=== PATIENT | female | born 1990 | race Caucasian/White ===

== ENCOUNTER 2018-11-10 19:11 | Emergency (ER) | payer OTHER ==
[~2018-11-10] VITALS: Ht 154.9 cm; Wt 51.9 kg
[~2018-11-10 19:11] MED LIST: CEPH-443 PO; IBUP-1542 PO; SULF1TAB31 PO
[2018-11-10 19:21] VITALS: Ht 154.9 cm; Wt 51.9 kg
--- NOTE | 2018-11-10 20:00 | ERD ---
ER Documentation Chief Complaint Chief Complaint L hip abscess X 1 wk after injecting heroin, requesting antibiotics only HPI Patient is a 27-year-old female, history of heroin abuse, presents the ER for concerns of abscess to her left upper thigh x1 week. Patient states she has marked the lesion and is improving with warm compresses however it remains present. Patient denies any fevers or chills. Patient is able to ambulate without any difficulty. Patient does not wish to have an incision and drainage today and states she only wants antibiotics. ROS All systems reviewed and are negative except as per history of present illness. Medications Home Meds Active Scripts Sulfamethoxazole/Trimethoprim* (Bactrim Ds* Tablet) 1 Each Tablet, 1 TAB PO BID, #20 TAB Prov:FATOUMATA PERALES PA-C 11/10/18 Cephalexin* (Keflex*) 500 Mg Capsule, 500 MG PO TID for 10 Days, CAP Prov:FATOUMATA PERALES-C 11/10/18 Ibuprofen* (Motrin*) 600 Mg Tab, 600 MG PO Q6, #30 TAB Prov:FATOUMATA PERALES-Nimisha 11/10/18 Allergies Allergies: Coded Allergies: No Known Allergy (Unverified , 11/10/18) FmHx Family History: No diabetes Physical Exam Vitals Vital Signs Date Temp Pulse Resp B/P (MAP) Pulse Ox O2 O2 Flow FiO2 Time Delivery Rate 11/10/18 97.5 105 18 126/76 96 19:21 (93) Physical Exam GENERAL: Well-developed, well-nourished female appears in no acute distress. HEAD: Normocephalic, atraumatic. EYES: Pupils are equally reactive bilaterally. EOMs grossly intact. No conjunctival erythema. ENT: Moist mucous membranes. No uvula deviation. No kissing tonsils. NECK: Supple. No meningismus. Normal range of motion of the neck. LUNG: Clear to auscultation bilaterally. No rhonchi, wheezing, rales or coarse breath sounds. HEART: Tachycardic no murmurs, rubs or gallops. L THIGH: 4 cm erythematous circular abscess noted on the patient's left lateral upper thigh. No streaking. Area is fluctuant. EXTREMITIES: Equal pulses bilaterally. No peripheral clubbing, cyanosis or edema. No unilateral leg swelling. NEUROLOGIC: Alert and oriented. Moving all four extremities without any difficulty. Normal speech. Steady gait. SKIN: Normal color. Warm and dry. No rashes or lesions. Procedures/MDM MEDICAL DECISION MAKING: Patient is a 27-year-old female who presents the ER for concerns of a abscess to her left upper thigh after injecting heroin to the affected area.. Vital signs were reviewed. Patient is afebrile. Patient was not hypoxic. Patient was hemodynamically stable. Patient states she has been watching the affected area, redness is improving however she feels as if she needs antibiotics. Patient does not wish to have an incision and drainage performed today. Patient states she would like to try antibiotics first. Patient will be discharged home with prescription for Bactrim and Keflex. Wound recheck was advised in 2 days. Low suspicion for septic joint or deep space infection at this time. Low suspicion for sepsis. Patient was nontoxic, [id number] prior to discharge. Heroin cessation discussed. PRESCRIPTION: Ibuprofen, Keflex, Bactrim DISCHARGE: At this time, patient is stable for discharge and outpatient management. I have instructed the patient to follow-up with his/her primary care physician in 1-2 days. I have discussed with the patient the possibility of needing to see a specialist for further workup and imaging studies if symptoms persist. I have i nstructed the patient to promptly return to the ER for any new or worsening symptoms including increased pain, fever, nausea, vomiting, weakness or LOC. The patient and/or family expressed understanding of and agreement with this plan. All questions were answered. Home care instructions were provided. Disclaimer: Inadvertent spelling and grammatical errors are likely due to EHR/d [employer] software use and do not reflect on the overall quality of patient care. Also, please note that the electronic time recorded on this note does not necessarily reflect the actual time of the patient encounter. Departure Diagnosis: Primary Impression: Abscess Additional Impression: Heroin use Patient Instructions: Abscess, Antiobiotic Treatment Only Referrals: COMMUNITY CLINICS YOU HAVE RECEIVED A MEDICAL SCREENING EXAM AND THE RESULTS INDICATE THAT YOU DO NOT HAVE A CONDITION THAT REQUIRES URGENT TREATMENT IN THE EMERGENCY DEPARTMENT. FURTHER EVALUATION AND TREATMENT OF YOUR CONDITION CAN WAIT UNTIL YOU ARE SEEN IN YOUR DOCTORS OFFICE WITHIN THE NEXT 1-2 DAYS. IT IS YOUR RESPONSIBILITY TO MAKE AN APPOINTMENT FOR FOLOW-UP CARE. IF YOU HAVE A PRIMARY DOCTOR --you should call your primary doctor and schedule an appointment IF YOU DO NOT HAVE A PRIMARY DOCTOR YOU CAN CALL OUR PHYSICIAN REFERRAL HOTLINE AT IF YOU CAN NOT AFFORD TO SEE A PHYSICIAN YOU CAN CHOSE FROM THE FOLLOWING [facility] [address] [facility] [address] [facility] [address] [facility] [address] [facility] [address] [facility]. [facility] [address] [facility]. [facility] YOU HAVE RECEIVED A MEDICAL SCREENING EXAM AND THE RESULTS INDICATE THAT YOU DO NOT HAVE A CONDITION THAT REQUIRES URGENT TREATMENT IN THE EMERGENCY DEPARTMENT. FURTHER EVALUATION AND TREATMENT OF YOUR CONDITION CAN WAIT UNTIL YOU ARE SEEN IN YOUR DOCTORS OFFICE WITHIN THE NEXT 1-2 DAYS. IT IS YOUR RESPONSIBILITY TO MAKE AN APPOINTMENT FOR FOLOW-UP CARE. IF YOU HAVE A PRIMARY DOCTOR --you should call your primary doctor and schedule and appointment IF YOU DO NOT HAVE A PRIMARY DOCTOR YOU CAN CALL OUR PHYSICIAN REFERRAL HOTLINE AT . IF YOU CAN NOT AFFORD TO SEE A PHYSICIAN YOU CAN CHOSE FROM THE FOLLOWING [facility]: [facility] [address] [place] [address] [facility] [address] [place] [place] [id number] [place] [address] [address] [place] [address] [facility] Additional Instructions: You refused incision and drainage today. Return to the ER in 2 days for recheck or sooner for any new or worsening symptoms. Return immediately if you desire incision and drainage. Call your primary care doctor TOMORROW for an appointment during the next 1-2 days.See the doctor sooner or return here if your condition worsens before your appointment time. FATOUMATA PERALES PA-C Nov 10, 2018 20:00
== END 2018-11-10 19:54 | disposition home or self-care (01) ==
LOC: E/R 19:11
DX: L02.416 Cutaneous abscess of left lower limb (principal); F11.90 Opioid use, unspecified, uncomplicated
CPT/HCPCS: 99283